=== PATIENT | female | born 1965 | race African-American/Black ===

== ENCOUNTER 2025-04-05 05:28 | Emergency (ER) | payer OTHER, SELFPAY ==
[2025-04-05 06:07] VITALS: BMI 42.3
--- NOTE | 2025-04-05 06:29 | ED.GENMED ---
History of Present Illness
General
Chief Complaint: Nose Bleed
Source: patient
Exam Limitations: none
Time Seen by Provider: 04/05/25 06:08
Nursing documentation reviewed up to this point in time: agreed with
History of Present Illness
History of Present Illness:
Patient is a 59-year-old female who presents to the ER complaining of a nosebleed(bilateral nares) since 4 AM. She has frequent nosebleeds in the past. She denies any trauma. She is not on blood thinners. She has never had to come to the ER for
nosebleed however she has had her nose packed by ENT. She denies any trauma headaches. She is on a blood thinners.
Past History
Past History
ED Past Medical History: Asthma, GERD and Other (Trigeminal neuralgia, Pleurisy, PNA)
ED Past Surgical History: Cholecystectomy and Gynecological (Uterine fibroidectomy)
Social History
Tobacco: Non-smoker
Alcohol: None
Drug: None
Personal: Single
Living: with family
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
Family History
Family History: Other (No significant)
Phy Exam
General Physical Exam
General Presentation: no apparent distress
General age: appears stated age
General Skin: warm and dry
General Habitus: normal
General Mental: alert
General Hydration: appears well hydrated
ENT Exam
ENT Exam: neck supple and other (active bleeding to b/l nostrils, increased on the right )
Neurological Exam
Neurological Exam: alert and oriented x3
Musculoskeletal Exam
Musculoskeletal Exam: full ROM
Skin Exam
Skin Exam: normal color and warm/dry
Psychiatric Exam
Psychiatric Exam: normal mood/affect
Course
Vital Signs
Initial and Last Documented VS:
Initial Vital Signs
Pulse BP Pulse Ox
90 136/91 98
04/05/25 06:34 04/05/25 06:34 04/05/25 06:34
Last Documented Vital Signs
Temp Pulse Resp BP Pulse Ox
98.2 F 77 18 117/85 96
04/05/25 07:53 04/05/25 07:53 04/05/25 07:53 04/05/25 07:53 04/05/25 07:53
Procedures
Nosebleed
Drug treatment: Epinephrine
Treatment: Merocel packing
Post treatment bleeding: none- good control
MDM/Problems Addressed
Differential Diagnosis Includes:
Not limited to epistaxis
MDM/Problems Addressed:
Patient is a 59-year-old female with history of frequent nosebleeds presented with nosebleed that started at 4 AM. Primary site of bleeding identified from right nares. This was packed with MErocel as documented and patient observed with no
further bleeding. plan to follow-up with outpatient ENT. She has been eval by our outpatient ENT in the past.
*Pulse Oximetry
SaO2: 98
Oxygen Mode of Delivery: Room air
Patient hypoxic: no
*Critical Care Note
Total Time (30-74mins, 75-104mins- exclusive of procedures): Not Applicable
ED Attending Note
-
Portions of this chart may have been created with voice recognition software.� Occasional wrong word or��sound alike� substitutions may have occurred due to the inherent limitations of voice recognition software.
Discharge Plan
Departure
Patient Disposition: Home (Routine Discharge)
Date of Disposition: 04/05/25
Time of Disposition: 07:47
Patient with high blood pressure during this ER visit?: Yes
Condition: Fair
Covid-19: Not Applicable
Discharge Problem:
Acute anterior epistaxis
Instructions: Nosebleeds (DC), BLOOD PRESSURE
Prescriptions:
No Action
Baclofen 10 MG
30 mg PO BID
Trileptal 600 MG
600 mg PO BID
ibuprofen 800 MG tablet
800 mg PO QIDPRN PRN (Reason: pain, take with food) Qty: 20 0RF
pantoprazole 40 MG tablet,delayed release (DR/EC)
40 mg PO DAILY Qty: 30 0RF
guaifenesin [Mucus Relief ER] 600 MG tablet extended release 12hr
1,200 mg PO Q12 Qty: 14 0RF
fluticasone propion-salmeterol [Advair Diskus] 1 EACH blister with device
1 ea IH BID Qty: 1 0RF
albuterol sulfate 1 PUFF HFA aerosol inhaler
1 puff inhalation R Q4HPRN PRN (Reason: sob or wheezing) Qty: 1 0RF
prednisone 10 MG tablet
10 mg PO .TAPER Qty: 45 0RF
Rx Instructions:
Take 50mg daily x3days, 40mg daily x3days,
30mg daily x3days, 20mg daily x3days,
10mg daily x3days
Referrals:
Liban Mixon MD [Active, Otology]
UNKNOWN - PT DOES,NOT KNOW [Family Provider]
Activity Restrictions/Additional Instructions:
As discussed keep packing in place until seen by ENT. Please call today to make an appointment in 2 days for packing removal. Do not blow your nose. If you need to sneeze please sneeze with your mouth open. Return if any worsening of symptoms
including any additional nosebleeding.
Interventions
Interventions:
*Risk Screen - Suicide Last Done: 04/05/25 08:50
*General Assessment Last Done: 04/05/25 06:07
*Neglect/Abuse Screening Last Done: 04/05/25 08:50
*ED- Fall Risk Assessment Last Done: 04/05/25 06:07
*ED COVID-19 Vaccine History Last Done: 04/05/25 06:07
*ED Influenza Vaccine History Last Done: 04/05/25 06:07
*Nursing Disposition Last Done: 04/05/25 08:50
ED-EENT Assessment Last Done: 04/05/25 06:07
Discharge Date and Time
Discharge Date/Time: 04/05/25 08:52
Print Language: TOGOLESE
[2025-04-05 06:34] VITALS: BP 136/91
[2025-04-05 07:53] VITALS: BP 117/85
== END 2025-04-05 08:52 | disposition home or self-care (01) ==
LOC: EMR 05:28
PROVIDERS: EMERGENCY PHYSICIAN Emergency Medicine
DX: R04.0 Epistaxis (principal); R03.0 Elevated blood-pressure reading, without diagnosis of hypertension; J45.909 Unspecified asthma, uncomplicated; K21.9 Gastro-esophageal reflux disease without esophagitis; G50.0 Trigeminal neuralgia
CPT/HCPCS: 99282; 30901

== ENCOUNTER 2025-04-06 09:22 | Emergency (ER) | payer OTHER, SELFPAY ==
[2025-04-06 09:29] VITALS: BP 178/98
[2025-04-06 10:18] VITALS: BMI 42.6
--- NOTE | 2025-04-06 10:41 | ED.GENMED ---
History of Present Illness
General
Chief Complaint: Nose Bleed
Source: patient
Time Seen by Provider: 04/06/25 10:25
History of Present Illness
History of Present Illness:
59-year-old female here yesterday for nosebleed. She had Merocel sponge placed in the right side of her nose and had stopped bleeding however she noted throughout the night started again this time was more from the left side of the nose. Since
waiting in the room she states the packing fell out of the right side of the nose and she got a large clot out of the left side of the nose and since then has been bleeding. She is not anticoagulated. No pain. She denies chest pain or shortness
of breath or lightheadedness. No other
Past History
Past History
ED Past Medical History: Asthma, GERD and Other (Trigeminal neuralgia, Pleurisy, PNA)
ED Past Surgical History: Cholecystectomy and Gynecological (Uterine fibroidectomy)
Social History
Tobacco: Non-smoker
Alcohol: None
Drug: None
Personal: Single
Living: with family
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
Family History
Family History: Other (No significant)
Phy Exam
Physical Exam
Physical Exam:
General: Well-appearing female no acute respiratory distress
HEENT: Normal cephalic atraumatic bilateral nasal cavities are patent no evidence of active bleeding it does appear that there is some dried blood over the medial anterior wall of the left nasal cavity. The posterior pharynx is without any blood.
TMs were visualized and are normal
Extremities: The
Course
Vital Signs
Initial and Last Documented VS:
Initial Vital Signs
Pulse Resp BP Pulse Ox
82 18 178/98 100
04/06/25 09:29 04/06/25 09:29 04/06/25 09:29 04/06/25 09:29
Last Documented Vital Signs
Pulse Resp BP Pulse Ox
67 16 154/85 100
04/06/25 11:09 04/06/25 11:09 04/06/25 11:09 04/06/25 10:47
MDM/Problems Addressed
Differential Diagnosis Includes:
Patient had persistent nosebleeding of the left side of the nose today and she was treated as a right sided nosebleed yesterday. On my exam the packing is currently removed and there is no active bleeding. Discussed options. Will keep an eye on
her for some time to monitor for any further bleeding
*Pulse Oximetry
SaO2: 100
Oxygen Mode of Delivery: Room air
Patient hypoxic: no
*Critical Care Note
Total Time (30-74mins, 75-104mins- exclusive of procedures): Not Applicable
Update Note
Update Note:
Patient has been observed without any packing. She ambulated throughout the room without any further bleeding. At this point we opted for no further intervention she has an appoint with ENT this coming Wednesday. Stable for this
ED Attending Note
-
Portions of this chart may have been created with voice recognition software.� Occasional wrong word or��sound alike� substitutions may have occurred due to the inherent limitations of voice recognition software.
Discharge Plan
Departure
Patient Disposition: Home (Routine Discharge)
Date of Disposition: 04/06/25
Time of Disposition: 12:31
Patient with high blood pressure during this ER visit?: No
Discharge Problem:
Epistaxis
Instructions: Nosebleeds (DC)
Prescriptions:
No Action
Baclofen 10 MG
30 mg PO BID
Trileptal 600 MG
600 mg PO BID
ibuprofen 800 MG tablet
800 mg PO QIDPRN PRN (Reason: pain, take with food) Qty: 20 0RF
pantoprazole 40 MG tablet,delayed release (DR/EC)
40 mg PO DAILY Qty: 30 0RF
guaifenesin [Mucus Relief ER] 600 MG tablet extended release 12hr
1,200 mg PO Q12 Qty: 14 0RF
fluticasone propion-salmeterol [Advair Diskus] 1 EACH blister with device
1 ea IH BID Qty: 1 0RF
albuterol sulfate 1 PUFF HFA aerosol inhaler
1 puff inhalation R Q4HPRN PRN (Reason: sob or wheezing) Qty: 1 0RF
prednisone 10 MG tablet
10 mg PO .TAPER Qty: 45 0RF
Rx Instructions:
Take 50mg daily x3days, 40mg daily x3days,
30mg daily x3days, 20mg daily x3days,
10mg daily x3days
Referrals:
Ariadna De La Torre DO [Family Provider, Family Practice]
Activity Restrictions/Additional Instructions:
Keep nasal mucosa moist with Vaseline. Follow-up with ENT as planned this Wednesday. Return if needed otherwise
Interventions
Interventions:
*Risk Screen - Suicide Last Done: 04/06/25 09:29
*General Assessment Last Done: 04/06/25 10:19
*Neglect/Abuse Screening Last Done: 04/06/25 10:21
*ED- Fall Risk Assessment Last Done: 04/06/25 10:19
*ED COVID-19 Vaccine History Last Done: 04/06/25 10:19
*ED Influenza Vaccine History Last Done: 04/06/25 10:19
ED-EENT Assessment Last Done: 04/06/25 10:21
Discharge Date and Time
Print Language: GIBRALTARIAN
[2025-04-06 11:09] VITALS: BP 154/85
== END 2025-04-06 12:43 | disposition home or self-care (01) ==
LOC: EMR 09:22
PROVIDERS: EMERGENCY PHYSICIAN Emergency Medicine; FAMILY PHYSICIAN Family Medicine
DX: R04.0 Epistaxis (principal); J45.909 Unspecified asthma, uncomplicated; K21.9 Gastro-esophageal reflux disease without esophagitis; G50.0 Trigeminal neuralgia
CPT/HCPCS: 99282